=== PATIENT | male | born 2000 | race Caucasian/White ===

== ENCOUNTER 2024-10-05 10:24 | Emergency (ER) | payer MEDICAID, SELFPAY ==
[2024-10-05 10:26] VITALS: BP 145/119; PULSE 55; RESP 18; TEMP 36.4; O2SAT 99; BMI 40.2
--- NOTE | 2024-10-05 10:46 | EDS_ITS ---
HPI History of Present Illness Chief Complaint: Lower Extremity Injury Informant: patient Narrative Narrative: Patient is a 24-year-old male with no segment past medical history presenting with atraumatic right foot pain. He states he woke up and was painful yest erday. He took 800 mg ibuprofen x 2 throughout the day with no significant relief. He took 500 mg of his dad's gabapentin with no relief. He notes the pain is worse on the outside of his foot and underneath ball of his foot. It is worse when he puts weight on it or directly touches it. Notes that he worked a full shift at [employer] yesterday and the pain was worse after that. Denies any new shoes but notes that he just has an old pair of Jordans that he continues to wear. Denies any new physical activities. No associated numbness or tingling. No other complaints or concerns reported at this time. Has never seen a audio visual production specialist before. [facility] Medical History (Updated 10/05/24 @ 11:[address] Patrica Tena DO) Foot pain Allergy/AdvReac Type Severity Reaction Status Date / Time No Known Allergies Allergy Verified 10/05/24 10:25 Social History Smoking Status: Unknown if ever smoked ROS [facility] ED Constitutional Constitutional ED: Denies chills or fever(s) Musculoskeletal Musculoskeletal: Reports other Details: Right foot pain Integumentary Denies Abrasions or rash Neurologic Neurologic: Denies paresthesias or weakness Hematologic/Lymphatic Hematologic/Lymphatic: Denies easy bleeding or easy bruising EXAM Physical Exam Const Vital Signs: 10/05/24 10:26 Temperature 97.6 F L Temperature Source Temporal Pulse Rate 55 L Respiratory Rate 18 Blood Pressure 145/119 H Blood Pressure Mean 127 Pulse Ox 99 Oxygen Delivery Method Room Air Positive well nourished and well developed General Appearance ED: well developed and NAD Chest Wall inspection of chest normal Resp normal respiratory effort and clear to auscultation bilaterally Cardio regular rate and regular rhythm Cardio Narrative: 2+ DP pulses, brisk capillary refill Extremity normal to inspection and full ROM Extremity Narrative: Right lower extremity, compartments are soft. No tender to palpation of the calf or proximal fibula. No bony tenderness of the ankle with normal range of motion. Mild tenderness palpation over the lateral aspect of the right midfoot with no obvious deformity. There is also tenderness palpation on the plantar aspect of the ball of the foot but it does not locate any particular area. No associated rash. Normal Dutton test. Able to move his toes well. General Extremety ED: Negative for edema General Extremity: Negative for edema Neuro oriented x3, moves all extremities and no sensory deficits noted Sensorium / Orientation: alert Psych mental status grossly normal Skin no wounds Lesions: no lesions Rashes: no rashes MDM MDM MDM Narrative Medical decision making narrative: Patient via for atraumatic right foot pain. Differential includes stress fracture and overuse injury. Will obtain x-ray. He has good distal pulses low suspicion for acute vascular abnormality. Normal Dutton test low suspicion for any Achilles tendinopathy. Is given a shot of IM Toradol for pain relief. Patient continues to have pain. X-ray reviewed by myself as well as radiology does not show any acute process. No free air appreciated. No significant better when at a compressive sock on. We given an Ruiz wrap as well as a postop shoe boot. Given a work note and given outpatient podiatry follow-up. Continue to alternate ibuprofen and Tylenol at home. Patient and family verbalized given understands plan. Discharged home in stable condition. Radiography Diagnostic Testing: Clinical Impression(s) from Imaging Studies Foot X-Ray 10/05/24 10:55 IMPRESSION: Posterior calcaneal spur. No acute abnormality is seen. Reading Location: [place] [id number] Discharge Plan Triage Chief Complaint: Lower Extremity Injury ED Provider: Patrica Tena Dx/Rx/DC Orders Clinical Impression: Foot pain, right Instructions: ED Foot Sprain Stand Alone Forms: ED Work / School Excuse Primary Care Provider: Care Physician,No Primary Referrals: Quintin Mazariegos DPM [Med Staff - Active Staff] - Care Physician,No Primary [Primary Care Provider] - Activity Restrictions/Additional Instructions: Wear Ruiz wrap and postop shoe as needed for support and pain. I recommend freezing a water bottle and rolling it underneath your foot to help with pain and swelling. Continue to alternate ibuprofen and Tylenol at home. You may take Tylenol when you get home but do not take another dose of ibuprofen or other NSAID until after 6 PM. Elevate the leg is much as possible. Return if you have progression or severe symptoms. Print Language: Paraguayan Disposition Disposition: Home, Self Care
[2024-10-05] MEDS: Ketorolac 15 MG/ML Vial IM (10:50)
--- NOTE | 2024-10-05 10:55 | RAD_ITS ---
PROCEDURE: FOOT MIN 3 VIEWS 10/05/2024 REASON FOR EXAM: 2 day history of pain. No trauma. TECHNIQUE: 3 views of the right foot. COMPARISON: None FINDINGS: Bones: Posterior calcaneal spur. Joints: Normal alignment. Soft tissues: Soft tissues are unremarkable. Other: RAD/Foot min 3 Views IMPRESSION: Posterior calcaneal spur. No acute abnormality is seen. Reading Location: [facility]
== END 2024-10-05 11:52 | disposition home or self-care (01) ==
PROVIDERS: Emergency Provider Emergency Medicine; Visit Provider Emergency Medicine
DX: M79.671 Pain in right foot (principal)
CPT/HCPCS: 73630; 96372; 99283

== ENCOUNTER 2024-10-05 22:28 | Emergency (ER) | payer MEDICAID, SELFPAY ==
[2024-10-05 22:30] VITALS: BP 184/81; PULSE 87; RESP 16; TEMP 36.6; O2SAT 99; BMI 40.7
--- NOTE | 2024-10-05 22:57 | ED.VIS.LOWEX ---
HPI History of Present Illness HPI Narrative: 24-year-old male no seen past medical history. No prior foot surgery. States for the last several days he has had atraumatic right foot pain worse with right walking. On the bottom sole of his right foot. No redness or swelling. No fever. Had 1 other time it resolved after several days. Patient states he does a lot of walking at work. Chief Complaint: Lower Extremity Injury Informant: patient and parent Occured/Mechanism Mechanism/Context: No injury and No blunt trauma Onset/Context/Timing Onset: Days Context: Gradual Onset Timing: Continuous Quality of Pain: Sharp Current Severity: Mild Maximum Severity: Mild Associated Symptoms Associated Symptoms: Negative for Parasthesia, Weakness or Loss of Funtion Narrative Narrative: 24-year-old male right foot pain worse with walking. No fall injury or trauma. No fever or redness. Seen earlier today x-ray was unremarkable other than a small posterior heel spur. Prior similar symptoms: Yes Recent Illness/Hospitalization: No PFSH PFSH Medical History Foot pain Medical History no medical history Allergy/AdvReac Type Severity Reaction Status Date / Time No Known Allergies Allergy Verified 10/05/24 22:32 Family History no significant family his Surgical History no surgical history Social History Smoking Status: Unknown if ever smoked ROS ROS ED ROS Narrative Denies recent illness. Constitutional Constitutional ED: Denies chills or fever(s) Eyes Eyes: Denies blurry vision ENT ENT ED: Denies ear pain Cardiovascular Cardiovascular: Denies chest pain Respiratory/Chest Respiratory/Chest: Denies cough or dyspnea Gastrointestinal Gastrointestinal: Denies abdominal pain Genitourinary Genitourinary ED: Denies dysuria or hematuria Musculoskeletal Musculoskeletal: Denies arthralgias, back pain or myalgias Integumentary Denies abscess or Abrasions Neurologic Neurologic: Denies headache(s) Psychiatric Psychiatric: Denies anxiety Hematologic/Lymphatic Hematologic/Lymphatic: Denies easy bleeding, easy bruising or lymphadenopathy Allergic/Immunologic Allergic/Immunologic ED: Denies mouth swelling, tongue swelling or urticaria EXAM Physical Exam Narrative Exam Narrative: 23-year-old male no acute distress sitting upright in bed. Vital signs stable afebrile. Initial blood pressure 184/81. H EENT exam pupils round reactive light. Moist mucous members. Neck nontender. Lungs clear equal symmetrical. Heart regular rhythm rate about 85 no murmur. Chest wall ribs nontender. Abdomen soft nontender. Moving all 4 extremities. 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 Dorsi plantarflexion intact. Normal DP pulse. Full flexion extension of both hips, knees and ankles. Dorsi plantarflexion intact. The bottom of his right foot is uncomfortable with palpation consistent with plantar fasciitis. There is no redness, warmth or swelling. There is no edema. There is no bony tenderness or deformity. Foot is neurovascularly intact. Otherwise exam unremarkable. Const Vital Signs: 10/05/24 22:30 Temperature 98 F Temperature Source Oral Pulse Rate 87 Respiratory Rate 16 Blood Pressure 184/81 H Blood Pressure Mean 115 Pulse Ox 99 Oxygen Delivery Method Room Air Positive well nourished and well developed; Negative for cachectic, contractures or unkempt General Appearance ED: well developed and NAD; Negative for unkempt, cachectic or contractures Nutritional Appearance: Negative for cachectic HEENT Reports moist mucous membranes normocephalic and atraumatic Eyes PERRL Neck full ROM and supple Chest Wall inspection of chest normal and palpation of chest normal Resp normal respiratory effort, no retractions and clear to auscultation bilaterally Cardio regular rate, regular rhythm, S1 normal heart sound, S2 normal heart sound and no murmurs GI non-tender, non-distended and no masses Auscultation: normoactive bowel sounds Palpation: soft; Negative for tender, guarding or rebound tenderness present Back/Spine no CVA tenderness Extremity normal to inspection and full ROM Extremity Narrative: Except the bottom of his right foot is tender consistent with plantar fasciitis. There is no swelling. There is no redness. There is no warmth. Palpable DP pulse. Full flexion extension of the right ankle with normal dorsi plantarflexion. No swelling. Able to wiggle his toes. No bony deformity. Neuro CN's II-XII intact bilaterally, moves all extremities and no sensory deficits noted Sensorium / Orientation: alert, oriented to person, oriented to place and oriented to time; Negative for orientation impaired Motor Exam: strength 5/5 throughout Psych mental status grossly normal Appearance: Negative for unkempt Skin no wounds Lesions: no lesions Rashes: no rashes Trauma: Negative for abrasion or laceration MDM MDM MDM Narrative Medical decision making narrative: 24-year-old male atraumatic right foot pain worse with walking he does a lot of walking at work. He was seen earlier today and x-ray obtained which was unremarkable other minor posterior heel spur. His exam is consistent with plantar fasciitis. Ice. Rest. Motrin. Postop shoe. Shoe inserts follow-up with podiatry as needed. History & Record Review Discussion w/independent historian: Patient and Family Additional record(s) reviewed:: Prior ED visit Discharge Plan Triage Chief Complaint: Lower Extremity Injury ED Provider: Stevo Yarbrough Dx/Rx/DC Orders Clinical Impression: Plantar fasciitis of right foot Instructions: ED Plantar Fasciitis Primary Care Provider: Care Physician,No Primary Referrals: Quintin Mazariegos DPM [Med Staff - Active Staff] - 1 Week if not improving Care Physician,No Primary [Primary Care Provider] - Activity Restrictions/Additional Instructions: You have inflammation of the connective tissue on the bottom of your right foot called plantar fasciitis. Ice. Massage your foot. Warm soaks. Motrin, Advil or ibuprofen 600 mg 3 times a day. Tylenol in between. This will decrease the inflammation and pain. The postop shoe is to cushion your foot to decrease the inflammation. When you go back to wearing normal shoes I would get gel inserts for your shoes. This should progressively improve if not follow-up with a document imaging manager. Print Language: Jordanian Disposition Disposition: Home, Self Care
== END 2024-10-05 23:06 | disposition home or self-care (01) ==
PROVIDERS: Emergency Provider Emergency Medicine; Visit Provider Emergency Medicine
DX: M72.2 Plantar fascial fibromatosis (principal); M77.31 Calcaneal spur, right foot
CPT/HCPCS: 99282

== ENCOUNTER 2024-11-21 09:55 | Emergency (ER) | payer MEDICAID, SELFPAY ==
[2024-11-21 09:55] VITALS: BP 161/82; PULSE 44; RESP 16; TEMP 36.4; O2SAT 98; BMI 36.7
[2024-11-21] MEDS: Ketorolac 30 MG/ML Syringe IM (11:20)
[2024-11-21 11:50] VITALS: BP 148/86; PULSE 51; RESP 16; TEMP 36.6; O2SAT 99
== END 2024-11-21 11:55 | disposition home or self-care (01) ==
PROVIDERS: Emergency Provider Surgery; Visit Provider Surgery
DX: S39.012A Strain of muscle, fascia and tendon of lower back, initial encounter (principal); X58.XXXA Exposure to other specified factors, initial encounter; G89.29 Other chronic pain; F17.210 Nicotine dependence, cigarettes, uncomplicated; Z87.81 Personal history of (healed) traumatic fracture
CPT/HCPCS: 96372; 99282